=== PATIENT | female | born 2000 | race Two or more races ===

== ENCOUNTER 2024-11-09 15:41 | Emergency (ER) | payer MEDICAID, SELFPAY ==
[2024-11-09 15:41] VITALS: BMI 25.6
[2024-11-09 16:33] VITALS: BP 118/76; PULSE 65; RESP 16; TEMP 36.9; O2SAT 98
--- NOTE | 2024-11-09 16:40 | XR_ITS ---
Examination: Fingers, left hand fifth digit 3 views Technique: AP, oblique, lateral views left hand fifth digit 3 views. Exam date and time: November 09, 2024 1653 hrs. Indications: Injury to the hand today with fifth digit pain. Findings: Adequate bone density Soft tissue swelling about the proximal interphalangeal joint fifth digit No acute fracture Impression: No acute fracture or dislocation
--- NOTE | 2024-11-09 16:41 | EDNOTE_ITS ---
Upper Extremity Injury RME/HPI General Chief Complaint: Extremity Injury, Upper Stated Complaint: Left 5th digit injury with weight at gym Time Seen by Provider: 11/09/24 16:08 Arrival date/time: 11/09/24 15:41 RME / HPI RME / HPI narrative: 24-year-old female patient came in for evaluation regarding left pinky finger injury, got hit with a dumbbell, while in the gym. Patient complained of bruising swelling and pain. More on the PIP joints. Denies any other injury. Related Data Previous Rx's ?Medication ?Instructions ?Recorded ibuprofen 200 mg tablet 200 mg PO Q6H PRN pain #20 t abs 02/17/23 Allergies Allergy/AdvReac Type Severity Reaction Status Date / Time No Known Allergies Allergy Verified 05/08/22 17:47 Review of Systems Review of Systems Narrative Review of Systems: Review of system reviewed and within normal limits except mentioned in HPI ED Exam Narrative Physical exam: VITAL SIGNS: Reviewed. GENERAL APPEARANCE: Alert and interactive, follows commands, no acute distress, HEAD AND FACE: Non-traumatic. ENT: PERRL, pink conjunctivitis, eyelid no trauma, Mucous membrane moist. NECK: Supple, nontender, no nuchal rigidity. GENITAL: Deferred. NEUROLOGICAL: Gross motor function intact sensory function intact, Appropriate for age. MUSCULOSKELETAL: low back nontender, full range of motion. EXTREMITIES: Left pinky swelling, bruising, more on the PIP joints, with tenderness, full range of motion. SKIN: Color pink, dry, no rash, no lacerations, no abrasions, no contusions. LYMPHATICS: Deferred. Course Quality Measures none Orders Category Date Time Status XR finger LT min 2V Stat Exams 11/09/24 16:40 Completed Ibuprofen Tab [Motrin Tab] Med 11/09/24 16:40 Discontinued 800 mg PO X1 ONE Vital Signs Vital signs: Vital Signs Temperature 98.5 F 11/09/24 16:33 Pulse Rate 65 11/09/24 16:33 Respiratory Rate 16 11/09/24 16:33 Blood Pressure 118/76 11/09/24 16:33 Pulse Oximetry (%) 98 11/09/24 16:33 Oxygen Delivery Method Room Air 11/09/24 16:33 Extremity Injury MDM Narrative MDM Narrative:: 24-year-old female patient came in for evaluation regarding left pinky finger injury, got hit with a dumbbell, while in the gym. Patient complained of bruising swelling and pain. More on the PIP joints. Denies any other injury. X-ray of the finger came back unremarkable. No fracture or dislocation noted. Results discussed with the patient. Finger splint applied. Distal neurovascular status intact post splinting. Patient appears nontoxic and hemodynamically stable. Patient discharged home and instructed to follow-up with primary care provider in 24 to 48 hours. Instructed to return to the emergency department immediately if worsening of symptoms Patient data External records reviewed:: None Clinical information provided by:: none Social determinants that could affect healthcare access:: none Patient has the following chronic illnesses:: None How is presenting disease/condition affected by chronic disease/condition?: no chronic disease Evaluation data The following diagnostics were reviewed and interpreted by me:: radiology exam(s) Lab and/or radiology exams considered but not ordered:: None Interpretation Summary: See results in MDM Medications / Prescriptions Medications or Prescriptions considered but not ordered:: None Medication administrations:: Medication Administration History Discontinued Medications Ibuprofen (Ibuprofen Tab 400 Mg Tablet) 800 mg PO X1 ONE Stop: 11/09/24 16:41 Last Admin: 11/09/24 17:04 Dose: 800 mg Documented By: PIERO Merida Consultations Consultation(s) initiated? (list below): No Diagnosis Upper Extremity Injury Differential Diagnosis: finger sprain and dislocation of finger Most likely diagnosis given after review of the tests above:: Finger sprain Admission Indicated Admission indicated?: not indicated Admission Request Was there a request for admission?: No Disposition Plan Disposition Plan: Discharge Discharge Attestation Discharge Attestation: The patient was given an opportunity to ask questions and understood the discharge instructions. Discharge instructions specifically effects, indications for sooner follow up or return to the emergency department, and the expected course of current diagnosis. Patient condition: Stable Discharge Plan Plan Patient Disposition: HOME (Self Care) Disposition Comment: Stable Prescriptions/Referrals Prescriptions/Med Rec: No Action ibuprofen 200 mg tablet 200 mg PO Q6H PRN (Reason: pain) Qty: 20 0RF Referrals: No Primary/Family,Physician [Primary Care Provider] - In 1 week Problem List Clinical Impression: Finger sprain Patient/Caregiver Discharge Instructions Discharge Activity: activity as tolerated Education Materials: ED Finger Sprain Additional Instructions: Thank you for the opportunity for serving you today. You are stable for discharged . You are advised to: Follow-up with your PCP in 1 to 2 days Return to ED for worsening of symptoms Increase oral fluids Take [id number] Tylenol Motrin as needed for pain wear your finger splint as needed for the next 2 weeks Print Language: British Stand Alone Forms: Mildred Award Info., Patient Portal Info Letter PA/TRAINING DEVELOPMENT SPECIALIST Supervising Physician PA/TRAINING DEVELOPMENT SPECIALIST Supervising Physician: MD Salbador
[2024-11-09] MEDS: IBUPROFEN TAB 400 MG TABLET 800 MG PO (17:04)
== END 2024-11-09 18:43 | disposition home or self-care (01) ==
PROVIDERS: Emergency Provider Emergency Medicine
DX: S63.617A Unspecified sprain of left little finger, initial encounter (principal); W22.8XXA Striking against or struck by other objects, initial encounter; Y92.39 Other specified sports and athletic area as the place of occurrence of the external cause
CPT/HCPCS: 73140; 99283; A9270

== ENCOUNTER 2025-03-22 15:26 | Emergency (ER) | payer MEDICAID, SELFPAY ==
[2025-03-22 15:26] VITALS: BMI 27.4
[2025-03-22 15:39] VITALS: BP 118/75; PULSE 82; RESP 18; TEMP 36.9; O2SAT 98
--- NOTE | 2025-03-22 15:42 | EKG_ITS ---
[facility] Test Date: 2025-03-22 Pat Name: CAROL DUMONT Department: Room: - Gender: Female Supervisor [employer]: : [id number] Requested By: Mitesh Bonds Order Number: [id number] Reading MD: Mitesh Bonds Measurements Intervals [place] Rate: 82 P: 39 MT: 142 QRS: 39 QRSD: 78 T: 16 QT: 354 QTc: 415 Interpretive Statements SINUS RHYTHM No previous ECG available for comparison /store/S0/[id number]/ecg/[id number].pdf
--- NOTE | 2025-03-22 15:42 | XR_ITS ---
Examination: PA lateral chest 2 views TECHNIQUE: Upright PA lateral chest 2 views Date and time: March 22, 2025 1608 hours INDICATIONS: Sharp chest pain today. FINDINGS: Normal heart size. The lungs are clear. The osseous structures are intact IMPRESSION: No active disease
--- NOTE | 2025-03-22 15:46 | PD.EDCHEST ---
ED Chest Pain RME/HPI General Chief Complaint: Chest Pain Stated Complaint: CHEST PAIN Time Seen by Provider: 03/22/25 15:27 Source: patient Arrival date/time: 03/22/25 15:26 24-year-old female with no known medical history presents to the emergency room with a chief complaint of 6 out of 10 sternal chest pain x 30 minutes Mode of arrival: ambulatory Limitations: no limitations Related Data Previous Rx's ?Medication ?Instructions ?Recorded ibuprofen 200 mg tablet 200 mg PO Q6H PRN pain #20 tabs 02/17/23 Allergies Allergy/AdvReac Type Severity Reaction Status Date / Time No Known Allergies Allergy Verified 03/22/25 15:29 Review of Systems Review of Systems Systems Reviewed: All systems reviewed, normal except as documented Constitutional Constitutional: Reports system reviewed and no additional complaints, except as documented, Denies fatigue, Denies fever(s), Denies headache(s) and Denies weakness Eyes Eyes: Reports system reviewed and no additional complaints, except as documented, Denies blurry vision and Denies change in vision ENT Ears, Nose, Mouth, and Throat: Reports system reviewed and no additional complaints, except as documented, Denies otalgia, Denies headache(s), Denies nasal congestion, Denies throat swelling and Denies vertigo Cardiovascular Cardiovascular: Reports system reviewed and no additional complaints, except as documented, Reports chest pain, Reports chest pain at rest, Reports chest pain with activity, Denies dyspnea and Denies dyspnea on exertion Respiratory Respiratory: Reports system reviewed and no additional complaints, except as documented, Denies chest congestion, Denies cough, Denies dyspnea, Denies dyspnea on exertion and Denies wheezing Gastrointestinal Gastrointestinal: Reports system reviewed and no additional complaints, except as documented, Denies abdominal pain, Denies cramping, Denies nausea and Denies vomiting Genitourinary Genitourinary: Reports system reviewed and no additional complaints, except as documented Musculoskeletal Musculoskeletal: Reports system reviewed and no additional complaints, except as documented and Denies back pain Integumentary/Breasts Skin/Breast: Reports system reviewed and no additional complaints, except as documented and Denies wounds Neurologic Neurologic: Reports system reviewed and no additional complaints, except as documented, Denies confusion, Denies headache(s), Denies lack of coordination, Denies vertigo and Denies weakness Psychiatric Psychiatric: Reports system reviewed and no additional complaints, except as documented, Denies anxiety, Denies confusion, Denies depression, Denies paranoia, Denies suicidal ideation and Denies tactile hallucinations Endocrine Endocrine: Reports system reviewed and no additional complaints, except as documented and Denies fatigue Hematologic/Lymphatic Hematologic/Lymphatic: Reports system reviewed and no additional complaints, except as documented and Denies lymphadenopathy Allergic/Immunologic Allergic/Immunologic: Reports system reviewed and no additional complaints, except as documented, Denies throat swelling, Denies urticaria and Denies wheezing Past Medical History Past Medical History CARDIAC: Negative Cardiac Disorders or Congestive Heart Failure RESPIRATORY: Negative Chronic Obstructive Pulmonary Disease (COPD) or Asthma GENITOURINARY: Negative Renal Disease ENDOCRINE: Negative Diabetes Mellitus Type 1 or Diabetes Mellitus Type 2 HEMATOLOGIC: Negative Sickle Cell Disease Social History SMOKING STATUS: Never smoker ED Exam General Limitations: Present no limitations General appearance: Present alert and in no apparent distress Head Head exam: Present atraumatic Eye Eye exam: Present normal appearance, PERRL and EOMI ENT ENT exam: Present normal exam, normal oropharynx and mucous membranes moist Neck Neck exam: Present normal inspection, full ROM and trachea midline Chest Chest inspection: Present normal inspection, symmetric chest wall rise and tenderness; Absent rash or abscess Respiratory Respiratory exam: Present normal lung sounds bilaterally; Absent respiratory distress, wheezes, stridor, accessory muscle use or prolonged expiratory phase Cardiovascular Cardiovascular exam: Present regular rate, normal rhythm and normal heart sounds Abdominal Exam Abdominal exam: Present soft and normal bowel sounds; Absent tenderness Extremities Exam Extremities exam: Present normal inspection and full ROM Back Exam Back exam: Present normal inspection and full ROM Neurological Exam Neurological exam: Present alert, oriented X3 and CN II-XII intact Psychiatric Psychiatric exam: Present normal affect and normal mood Skin Skin exam: Present warm, dry, intact and normal color Course Quality Measures none Orders Category Date Time Status EKG (ED ONLY) *Do not use* NOW Care 03/22/25 15:42 Completed EKG (ED Only) Stat Exams 03/22/25 15:42 Draft XR chest 2V Stat Exams 03/22/25 15:42 Completed B-Type Natriuretic Peptide Stat Lab 03/22/25 15:58 Completed CBC Stat Lab 03/22/25 15:58 Completed Comprehensive Metabolic Panel Stat Lab 03/22/25 15:58 Completed Drug Screen,Urine Stat Lab 03/22/25 15:42 Ordered Magnesium Stat Lab 03/22/25 15:58 Completed Troponin I Stat Lab 07/03/25 15:58 Completed Urinalysis Stat Lab 03/22/25 15:42 Ordered Vital Signs Vital signs: Vital Signs Temperature 98.5 F 03/22/25 15:39 Pulse Rate 82 03/22/25 15:39 Respiratory Rate 18 03/22/25 15:39 Blood Pressure 118/75 03/22/25 15:39 Pulse Oximetry (%) 98 03/22/25 15:39 Oxygen Delivery Method Room Air 03/22/25 15:39 O2 saturation 98% within normal limits PROCEDURES: EKG Interpretation #1: Date of EK03/22/25 Rate: 65 Interpretation: Reviewed by me EKG Impression: Normal sinus rhythm Chest Pain MDM Narrative MDM Narrative:: 24-year-old female with no known medical history presents to the emergency room with a chief complaint of 6 out of 10 sternal chest pain x 30 minutes Patient is hemodynamically stable and in no apparent distress Physical examination shows some 6 out of 10 sternal chest pain. Patient has clear bilateral lung sounds there is no wheezing there is no stridor there is no abnormalities. The patient has a strong and regular rhythm S1 and S2 noted. EKG was completed and shows normal sinus rhythm at 65 bpm CBC CMP troponin were all negative Patient was discharged and educated to follow-up with primary care provider in the next 24 to 48 hours and return to the emergency room for any evidence of worsening signs or symptoms Patient data External records reviewed:: [facility] previous records Clinical information provided by:: patient Social determinants that could affect healthcare access:: none Patient has the following chronic illnesses:: No chronic illness How is presenting disease/condition affected by chronic disease/condition?: no chronic disease Evaluation data The following diagnostics were reviewed and interpreted by me:: lab results and radiology exam(s) Lab and/or radiology exams considered but not ordered:: Labs and radiology exams considered and ordered Interpretation Summary: Chest [id number]: Normal heart size. The lungs are clear. The osseous structures are intact IMPRESSION: No active disease Medications / Prescriptions Medications or Prescriptions considered but not ordered:: No medication given Medication administrations:: No medication given Consultations Consultation(s) initiated? (list below): No Diagnosis Chest Pain Differential Diagnosis: stable angina, unstable angina pectoris, atypical chest pain, st elevation myocardial infarction, costochondritis and chest pain Most likely diagnosis given after review of the tests above:: Chest pain Admission Indicated Admission indicated?: not indicated Admission Request Was there a request for admission?: No Disposition Plan Disposition Plan: Discharge Discharge Attestation Discharge Attestation: The patient and all family members were given an opportunity to ask questions and understood the discharge instructions. Discharge instructions specifically effects, indications for sooner follow up or return to the emergency department, and the expected course of current diagnosis. Patient condition: Stable Discharge Plan Plan Patient Disposition: HOME (Self Care) Discharge Disposition comment: Stable Prescriptions/Referrals Prescriptions/Med Rec: No Action ibuprofen 200 mg tablet 200 mg PO Q6H PRN (Reason: pain) Qty: 20 0RF Referrals: No Primary/Family,Physician [Primary Care Provider] - In 1 week Problem List Clinical Impression: Chest pain Patient/Caregiver Discharge Instructions Education Materials: ED Chest Pain, Noncardiac Additional Instructions: Please follow-up with your primary care provider in the next 24 to 48 hours Your EKG was within normal limits. Your cardiac examination was within normal limits. Your blood work was negative for any acute findings Please follow-up with your primary care provider for further management of your chest pain as a referral to a grounds foreman may be indicated if this continues Your chest x-ray was negative for any pneumonic infiltrates or abnormal findings For any evidence of worsening signs or symptoms return to the emergency room immediately Print Language: Lao Stand Alone Forms: Mildred Award Info., Patient Portal Info Letter MONIQUE/MULU Supervising Physician MONIQUE/MULU Supervising Physician: Dr. Orozco
[2025-03-22 16:19] LABS: Basophils # (Auto) 0.1 Thou/mm3 (0.0-0.2); Basophils % (Auto) 1 % (0-2.5); Eosinophils # (Auto) 0.1 Thou/mm3 (0.0-0.5); Eosinophils % (Auto) 2 % (0-10); Hematocrit 40.7 % (36.0-46.0); Hemoglobin 14.0 g/dL (12.0-16.0); Immature Granulocytes Auto 0.01 Thou/mm3 (0.00-0.00); Lymphocytes # (Auto) 2.6 Thou/mm3 (1.0-4.8); Lymphocytes % (Auto) 33 % (10-50); Mean Corpuscular HGB Conc 34.4 g/dl (31.0-37.0); Mean Corpuscular Hemoglobin 30.0 pg (25.0-35.0); Mean Corpuscular Volume 87 fL (80-100); Monocytes # (Auto) 0.5 Thou/mm3 (0.0-0.8); Monocytes % (Auto) 7 % (0-12); Neutrophils # (Auto) 4.5 Thou/mm3 (1.8-7.7); Neutrophils % (Auto) 57 % (37-80); Nucleated Red Blood Cell # 0.00 Thou/mm3 (0.00-0.00); Nucleated Red Blood Cell % 0 /100 WBC (0); Platelet Count 226 Thou/mm3 (140-440); RDW Standard Deviation 40.1 fL (36.4-46.3); Red Blood Count 4.67 Miln/mm3 (4.00-5.20); White Blood Count 7.8 Thou/mm3 (3.6-11.0)
[2025-03-22 16:39] LABS: B-Type Natriuretic Peptide 65 pg/mL (0-100)
[2025-03-22 16:41] LABS: Alanine Aminotransferase 13 U/L (10-49); Albumin, Serum 4.6 gm/dL (3.5-5.0); Albumin/Globulin Ratio 1.6 (1.2-2.2); Alkaline Phosphatase 65 U/L (46-116); Anion Gap 7 (7-16); Aspartate Amino Transferase 20 U/L (0-34); BUN/Creatinine Ratio 8 Ratio (12-20); Bilirubin,Total 1.2 mg/dL (0.3-1.2); Blood Urea Nitrogen 8 mg/dL (9-23); Calcium 9.4 mg/dL (8.3-10.6); Calcium (Corrected) 9.4 mg/dL (8.5-10.1); Carbon Dioxide 25.1 mMol/L (20.0-31.0); Chloride 107 mMol/L (98-107); Creatinine (Component) 1.0 mg/dL (0.6-1.3); Estimated Creatinine Clearance 79.8 mL/min (>60); Globulin 2.9 gm/dL (2.3-3.5); Glucose 92 mg/dL (74-106); Magnesium 2.1 mg/dL (1.6-2.6); Osmolality,Calculated 275 (275-295); Potassium 3.6 mMol/L (3.4-5.1); Sodium 139 mMol/L (136-145); Total Protein 7.5 gm/dL (5.7-8.2); Troponin I < 0.002 ng/mL (0.0-0.045); eGFR > 60 See Note
[2025-03-22 17:46] LABS: Collection Type, Urine Clean Catch
[2025-03-22 18:01] LABS: Bacteria,Urine Rare; Bilirubin,Urine Negative (Negative); Blood,Urine Negative (Negative); Color,Urine Colorless (Lt Yel-Yel); Glucose, Urine Negative (Negative); Ketones,Urine Negative (Negative); Leukocyte Esterase,Urine Positive (Negative); Nitrite,Urine Negative (Negative); PH,Urine 7.5 (5.0-7.0); Protein,Urine Negative (Neg - Trace); RBC,Urine 5 /hpf (0-3); Specific Gravity,Urine 1.007 (1.001-1.035); Squamous Epithelial Cell,Urine 12 /hpf (0-5); Urobilinogen,Urine Negative mg/dL (0.0-1.0); WBC,Urine 15 /hpf (0-5)
[2025-03-22 18:02] LABS: Clarity,Urine Hazy (Clear/Hazy)
[2025-03-22 18:06] LABS: Amphetamine/Methamp Scrn,U Negative (Negative); Barbiturate Screen,Urine Negative (Negative); Benzodiazepines Screen,Urine Negative (Negative); Benzoylecgonine Screen, Ur Negative (Negative); Fentanyl Screen,Urine Negative (Negative); Opiate Screen,Urine Negative (Negative); THC Screen,Urine Negative (Negative)
== END 2025-03-22 17:25 | disposition home or self-care (01) ==
PROVIDERS: Nurse Practitioner Family; Emergency Provider Family Medicine
DX: R07.9 Chest pain, unspecified (principal)
CPT/HCPCS: 36415; 71046; 80053; 80307; 81001; 83735; 83880; 84484; 85025; 93005; 99283